=== PATIENT | female | born 1985 | race Caucasian/White ===

== ENCOUNTER → 2016-09-02 | Outpatient (REF) | payer OTHER ==
[~2016-09-02] MED LIST: COUM1TAB17 PO; LOVE0.6I2 SC; XARE15TA PO
[2016-09-02 11:39] LABS: INR 2.54
== END ==
LOC: M SFHCCAPE 08:36
PROVIDERS: ATTEND Family Medicine
DX: Z51.81 Encounter for therapeutic drug level monitoring (principal); Z79.01 Long term (current) use of anticoagulants; Z86.718 Personal history of other venous thrombosis and embolism

== ENCOUNTER → 2016-09-23 | Outpatient (REF) | payer OTHER | LOC: M SFHCCLAY 07:45 | PROVIDERS: ATTEND Family Medicine | DX: Z51.81 Encounter for therapeutic drug level monitoring (principal); Z79.01 Long term (current) use of anticoagulants; Z86.718 Personal history of other venous thrombosis and embolism ==

== ENCOUNTER → 2016-10-14 | Outpatient (REF) | payer OTHER ==
[2016-10-14 11:39] LABS: INR 1.8
== END ==
LOC: M SFHCCLAY 07:34
PROVIDERS: ATTEND Family Medicine
DX: Z51.81 Encounter for therapeutic drug level monitoring (principal); Z79.01 Long term (current) use of anticoagulants; Z86.718 Personal history of other venous thrombosis and embolism

== ENCOUNTER → 2016-10-28 | Outpatient (REF) | payer OTHER ==
[2016-10-28 11:57] LABS: INR 2.39
== END ==
LOC: M SFHCCLAY 07:36
PROVIDERS: ATTEND Family Medicine
DX: Z79.01 Long term (current) use of anticoagulants (principal)

== ENCOUNTER → 2016-11-25 | Outpatient (REF) | payer OTHER ==
[2016-11-25 12:21] LABS: ALBUMIN 3.7 GM/DL (3.2-5.2); ALBUMIN/GLOBULIN RATIO 1.19 (1.00-1.93); ALKALINE PHOSPHATASE 76 U/L (45-117); ALT/SGPT 46 U/L (12-78); ANION GAP 7 MEQ/L (8-16); AST/SGOT 27 U/L (15-37); BILIRUBIN,TOTAL 0.6 MG/DL (0.2-1.0); BLOOD UREA NITROGEN 20 MG/DL (7-18); CARBON DIOXIDE LEVEL 28 MEQ/L (21-32); CHLORIDE LEVEL 107 MEQ/L (98-107); CHOLESTEROL LEVEL 161 MG/DL (<200); CREATININE FOR GFR 0.77 MG/DL (0.55-1.02); GLOMERULAR FILTRATION RATE > 60.0 (>60); GLUCOSE, FASTING 79 MG/DL (70-105); POTASSIUM SERUM 4.6 MEQ/L (3.5-5.1); SODIUM LEVEL 142 MEQ/L (136-145); TOTAL PROTEIN 6.8 GM/DL (6.4-8.2); TRIGLYCERIDES LEVEL 37 MG/DL (<150)
[2016-11-25 12:39] LABS: INR 2.47
== END ==
LOC: M SFHCCLAY 07:20
PROVIDERS: ATTEND Family Medicine
DX: Z51.81 Encounter for therapeutic drug level monitoring (principal); Z79.01 Long term (current) use of anticoagulants; Z86.718 Personal history of other venous thrombosis and embolism; Z83.49 Family history of other endocrine, nutritional and metabolic diseases

== ENCOUNTER → 2016-12-23 | Outpatient (REF) | payer OTHER ==
[2016-12-23 12:04] LABS: INR 2.07
== END ==
LOC: M SFHCCLAY 07:32
PROVIDERS: ATTEND Family Medicine
DX: Z86.718 Personal history of other venous thrombosis and embolism (principal)

== ENCOUNTER → 2017-01-20 | Outpatient (REF) | payer OTHER | LOC: M SFHCCLAY 07:26 | PROVIDERS: ATTEND Family Medicine | DX: Z51.81 Encounter for therapeutic drug level monitoring (principal); Z79.01 Long term (current) use of anticoagulants; Z53.8 Procedure and treatment not carried out for other reasons ==

== ENCOUNTER → 2017-01-21 | Outpatient (REF) | payer OTHER ==
[2017-01-21 12:17] LABS: INR 2.1
== END ==
LOC: M SFHCCLAY 07:30
PROVIDERS: ATTEND Family Medicine
DX: Z86.718 Personal history of other venous thrombosis and embolism (principal); Z79.01 Long term (current) use of anticoagulants

== ENCOUNTER → 2017-02-19 | Outpatient (REF) | payer OTHER ==
[2017-02-19 11:36] LABS: INR 2.42
== END ==
LOC: M SFHCCLAY 07:42
PROVIDERS: ATTEND Family Medicine
DX: Z51.81 Encounter for therapeutic drug level monitoring (principal); Z79.01 Long term (current) use of anticoagulants; Z86.718 Personal history of other venous thrombosis and embolism

== ENCOUNTER → 2017-03-18 | Outpatient (REF) | payer OTHER ==
[2017-03-18 11:54] LABS: INR 3.45
== END ==
LOC: M SFHCCLAY 07:23
PROVIDERS: ATTEND Family Medicine
DX: Z51.81 Encounter for therapeutic drug level monitoring (principal); Z79.01 Long term (current) use of anticoagulants; Z86.718 Personal history of other venous thrombosis and embolism

== ENCOUNTER → 2017-04-01 | Outpatient (REF) | payer OTHER ==
[2017-04-01 11:48] LABS: INR 1.97
== END ==
LOC: M SFHCCLAY 08:30
PROVIDERS: ATTEND Family Medicine
DX: Z51.81 Encounter for therapeutic drug level monitoring (principal); Z79.01 Long term (current) use of anticoagulants; Z86.718 Personal history of other venous thrombosis and embolism

== ENCOUNTER → 2017-04-15 | Outpatient (REF) | payer OTHER ==
[2017-04-15 11:38] LABS: INR 1.9
== END ==
LOC: M SFHCCLAY 08:03
PROVIDERS: ATTEND Family Medicine
DX: Z51.81 Encounter for therapeutic drug level monitoring (principal); Z79.01 Long term (current) use of anticoagulants

== ENCOUNTER → 2017-04-29 | Outpatient (REF) | payer OTHER ==
[2017-04-29 12:25] LABS: INR 2.59
== END ==
LOC: M SFHCCLAY 08:27
PROVIDERS: ATTEND Family Medicine
DX: Z79.01 Long term (current) use of anticoagulants (principal)

== ENCOUNTER → 2017-05-27 | Outpatient (REF) | payer OTHER ==
[2017-05-27 12:00] LABS: INR 2.21
== END ==
LOC: M SFHCCLAY 07:30
PROVIDERS: ATTEND Family Medicine
DX: Z51.81 Encounter for therapeutic drug level monitoring (principal); Z79.01 Long term (current) use of anticoagulants; Z86.718 Personal history of other venous thrombosis and embolism

== ENCOUNTER → 2017-07-08 | Outpatient (REF) | payer OTHER ==
[2017-07-08 12:01] LABS: INR 2.93
== END ==
LOC: M SFHCCLAY 07:27
PROVIDERS: ATTEND Family Medicine
DX: Z79.01 Long term (current) use of anticoagulants (principal)

== ENCOUNTER → 2017-07-21 | Outpatient (REF) | payer OTHER ==
[2017-07-21 12:06] LABS: INR 2.26
== END ==
LOC: M SFHCCLAY 07:27
PROVIDERS: ATTEND Family Medicine
DX: Z86.718 Personal history of other venous thrombosis and embolism (principal)

== ENCOUNTER → 2017-08-19 | Outpatient (REF) | payer OTHER ==
[2017-08-19 11:45] LABS: INR 1.9
== END ==
LOC: M SFHCCLAY 07:29
PROVIDERS: ATTEND Family Medicine
DX: Z86.718 Personal history of other venous thrombosis and embolism (principal)

== ENCOUNTER → 2017-09-02 | Outpatient (REF) | payer OTHER ==
[2017-09-02 12:59] LABS: INR 1.56; PROTHROMBIN TIME 19.1 SECONDS (12.4-14.5)
== END ==
LOC: M SFHCCLAY 07:28
DX: Z51.81 Encounter for therapeutic drug level monitoring (principal); Z79.01 Long term (current) use of anticoagulants
CPT/HCPCS: 85610

== ENCOUNTER → 2017-09-16 | Outpatient (REF) | payer OTHER ==
[2017-09-16 12:27] LABS: INR 1.45
== END ==
LOC: M SFHCCLAY 07:31
DX: Z86.718 Personal history of other venous thrombosis and embolism (principal)
CPT/HCPCS: 85610

== ENCOUNTER → 2017-09-30 | Outpatient (REF) | payer OTHER ==
[2017-09-30 12:48] LABS: INR 2.23; PROTHROMBIN TIME 25.5 SECONDS (12.4-14.5)
== END ==
LOC: M SFHCCLAY 08:51
DX: Z51.81 Encounter for therapeutic drug level monitoring (principal); Z79.01 Long term (current) use of anticoagulants
CPT/HCPCS: 85610

== ENCOUNTER → 2017-10-14 | Outpatient (REF) | payer OTHER ==
[2017-10-14 12:04] LABS: INR 3.05; PROTHROMBIN TIME 32.9 SECONDS (12.4-14.5)
== END ==
LOC: M SFHCCLAY 07:33
DX: Z51.81 Encounter for therapeutic drug level monitoring (principal); Z79.01 Long term (current) use of anticoagulants
CPT/HCPCS: 85610

== ENCOUNTER → 2017-10-28 | Outpatient (REF) | payer OTHER ==
[2017-10-28 12:03] LABS: INR 1.74; PROTHROMBIN TIME 20.9 SECONDS (12.4-14.5)
== END ==
LOC: M SFHCCLAY 07:38
DX: Z79.01 Long term (current) use of anticoagulants (principal)
CPT/HCPCS: 85610

== ENCOUNTER → 2017-11-18 | Outpatient (REF) | payer OTHER ==
[2017-11-18 11:42] LABS: HEMATOCRIT 41.5 % (36.0-47.0); MEAN CORPUSCULAR HEMOGLOBIN 30.4 pg (27.0-33.0); MEAN CORPUSCULAR HGB CONC 33.7 g/dl (32.0-36.5); MEAN CORPUSCULAR VOLUME 90.2 fl (80.0-96.0); PLATELET COUNT, AUTOMATED 167 10^3/uL (150-450); RED CELL DISTRIBUTION WIDTH 12.3 % (11.5-14.5); WHITE BLOOD COUNT 5.7 10^3/uL (4.0-10.0)
[2017-11-18 11:53] LABS: INR 1.82; PROTHROMBIN TIME 21.6 SECONDS (12.4-14.5)
[2017-11-18 12:07] LABS: IRON (FE) 75 UG/DL (50-170); PERCENT SATURATION 28.1 % (13.2-45.0); TOTAL IRON BINDING CAPACITY 267 UG/DL (250-450)
== END ==
LOC: M SFHCCLAY 07:22
DX: N92.1 Excessive and frequent menstruation with irregular cycle (principal); Z79.01 Long term (current) use of anticoagulants

== ENCOUNTER → 2017-12-03 | Outpatient (REF) | payer OTHER ==
[2017-12-03 11:58] LABS: INR 2.04; PROTHROMBIN TIME 23.7 SECONDS (12.4-14.5)
== END ==
LOC: M SFHCCLAY 11:20
DX: Z51.81 Encounter for therapeutic drug level monitoring (principal); Z79.01 Long term (current) use of anticoagulants

== ENCOUNTER → 2017-12-16 | Outpatient (REF) | payer OTHER ==
[2017-12-16 11:50] LABS: INR 2.23; PROTHROMBIN TIME 25.5 SECONDS (12.4-14.5)
== END ==
LOC: M SFHCCLAY 08:06
DX: Z79.01 Long term (current) use of anticoagulants (principal)

== ENCOUNTER → 2018-01-13 | Outpatient (REF) | payer OTHER ==
[2018-01-13 11:41] LABS: INR 3.53; PROTHROMBIN TIME 37.1 SECONDS (12.4-14.5)
== END ==
LOC: M SFHCCLAY 07:30
DX: Z79.01 Long term (current) use of anticoagulants (principal)
CPT/HCPCS: 85610

== ENCOUNTER → 2018-11-08 | Outpatient (REF) | payer OTHER ==
[2018-11-08 11:35] LABS: HEMATOCRIT 43.5 % (36.0-47.0); HEMOGLOBIN 14.7 g/dl (12.0-15.5); MEAN CORPUSCULAR HEMOGLOBIN 30.9 pg (27.0-33.0); MEAN CORPUSCULAR HGB CONC 33.8 g/dl (32.0-36.5); MEAN CORPUSCULAR VOLUME 91.4 fl (80.0-96.0); PLATELET COUNT, AUTOMATED 169 10^3/uL (150-450); RED BLOOD COUNT 4.76 10^6/uL (4.00-5.40); WHITE BLOOD COUNT 5.9 10^3/uL (4.0-10.0)
[2018-11-08 11:41] LABS: ALBUMIN 3.9 GM/DL (3.2-5.2); ALT/SGPT 51 U/L (12-78); BILIRUBIN,TOTAL 0.5 MG/DL (0.2-1.0); BLOOD UREA NITROGEN 18 MG/DL (7-18); CARBON DIOXIDE LEVEL 26 MEQ/L (21-32); CHLORIDE LEVEL 107 MEQ/L (98-107); CHOLESTEROL LEVEL 171 MG/DL (<200); CHOLESTEROL RISK RATIO 3.226 (<5); CREATININE FOR GFR 0.79 MG/DL (0.55-1.30); GLOMERULAR FILTRATION RATE > 60.0 (>60); GLUCOSE, FASTING 85 MG/DL (70-100); HDL CHOLESTEROL 53 MG/DL (>40); LDL CHOLESTEROL 105 MG/DL (<100); NON-HDL-C 118 MG/DL; POTASSIUM SERUM 4.4 MEQ/L (3.5-5.1); SODIUM LEVEL 140 MEQ/L (136-145); TRIGLYCERIDES LEVEL 65 MG/DL (<150)
== END ==
LOC: M SFHCCLAY 07:43
PROVIDERS: ATTEND Family Medicine
DX: D68.51 Activated protein C resistance (principal); Z86.718 Personal history of other venous thrombosis and embolism; Z83.3 Family history of diabetes mellitus; Z79.01 Long term (current) use of anticoagulants; N92.1 Excessive and frequent menstruation with irregular cycle

== ENCOUNTER → 2019-06-27 | Outpatient (REF) | payer OTHER ==
[2019-06-27 12:56] LABS: BASO % 0.3 % (0.0-1.0); EOS # 0.2 10^3/uL (0.0-0.5); EOS % 2.9 % (0.0-3.0); HEMATOCRIT 42.5 % (36.0-47.0); HEMOGLOBIN 14.7 g/dl (12.0-15.5); LYMPH # 2.1 10^3/uL (1.5-5.0); MEAN CORPUSCULAR HEMOGLOBIN 32.1 pg (27.0-33.0); MEAN CORPUSCULAR HGB CONC 34.6 g/dl (32.0-36.5); MEAN CORPUSCULAR VOLUME 92.8 fl (80.0-96.0); MONO # 0.5 10^3/uL (0.0-0.8); MONO % 7.8 % (0.0-5.0); NEUTROPHILS # 3.9 10^3/uL (1.5-8.5); NEUTROPHILS % 57.7 % (36.0-66.0); PLATELET COUNT, AUTOMATED 179 10^3/uL (150-450); RED BLOOD COUNT 4.58 10^6/uL (4.00-5.40); WHITE BLOOD COUNT 6.8 10^3/uL (4.0-10.0)
== END ==
LOC: M LABDRAW1 11:44
PROVIDERS: ATTEND Nurse Practitioner
DX: Z01.419 Encounter for gynecological examination (general) (routine) without abnormal findings (principal); N93.9 Abnormal uterine and vaginal bleeding, unspecified

== ENCOUNTER 2019-11-01 11:07 | Emergency (ER) | payer OTHER ==
[~2019-11-01] VITALS: Ht 167.6 cm; Wt 86.3 kg
[2019-11-01] MEDS ORDERED: WARF-22 PO ×2 (11:17)
--- NOTE | 2019-11-01 12:10 | REP ---
LEFT LOWER EXTREMITY DUPLEX VENOUS ULTRASOUND: Real-time compression and duplex Doppler interrogation of left lower extremity deep venous system is performed. Thin linear old thrombus is seen in the left common femoral and superficial femoral veins, but these vessels are fully compressible with transducer pressure and demonstrate no acute deep vein thrombosis. However, there is nonocclusive thrombus seen in the left popliteal vein, with that vessel incompletely compressible. This could be acute or chronic. IMPRESSION: Nonocclusive thrombus in the left popliteal vein could be acute or chronic. No other evidence of deep vein thrombosis left lower extremity. Electronically Signed by Jovan Carver MD 11/01/2019 04:09 P
[2019-11-01] MEDS ORDERED: LOVE1INJ SC (14:17)
[2019-11-01 14:29] VITALS: BP 136/85
== END 2019-11-01 14:34 | disposition home or self-care (01) ==
LOC: M ED 11:07
DX: I82.432 Acute embolism and thrombosis of left popliteal vein (principal); Z79.01 Long term (current) use of anticoagulants

== ENCOUNTER 2019-11-01 15:31 | Emergency (ER) | payer OTHER ==
[~2019-11-01] VITALS: Ht 167.6 cm; Wt 83.2 kg
[~2019-11-01 15:31] MED LIST changes: +LOVE1INJ SC; +WARF-22 PO
[2019-11-01] MEDS ORDERED: ENOXAPARIN 120 MG/0.8 ML SYR (J1650) SC ONE (16:00)
[2019-11-01] MEDS ORDERED: ENOXAPARIN 100MG/1ML SYRINGE (J1650) SC ONE ×2 (16:00)
[2019-11-01 16:17] LABS: BASO % 0.4 % (0.0-1.0); EOS # 0.1 10^3/uL (0.0-0.5); EOS % 1.7 % (0.0-3.0); HEMATOCRIT 45.2 % (36.0-47.0); HEMOGLOBIN 14.7 g/dl (12.0-15.5); LYMPH # 1.7 10^3/uL (1.5-5.0); LYMPH % 22.4 % (24.0-44.0); MEAN CORPUSCULAR HEMOGLOBIN 29.2 pg (27.0-33.0); MEAN CORPUSCULAR HGB CONC 32.5 g/dl (32.0-36.5); MEAN CORPUSCULAR VOLUME 89.7 fl (80.0-96.0); MONO # 0.5 10^3/uL (0.0-0.8); MONO % 6.4 % (0.0-5.0); NEUTROPHILS # 5.2 10^3/uL (1.5-8.5); NEUTROPHILS % 68.8 % (36.0-66.0); PLATELET COUNT, AUTOMATED 189 10^3/uL (150-450); RED BLOOD COUNT 5.04 10^6/uL (4.00-5.40); WHITE BLOOD COUNT 7.6 10^3/uL (4.0-10.0)
[2019-11-01 16:48] LABS: CREATININE FOR GFR 0.82 MG/DL (0.55-1.30); GLOMERULAR FILTRATION RATE > 60.0 (>60)
[2019-11-01 17:46] VITALS: BP 124/78
== END 2019-11-01 17:51 | disposition home or self-care (01) ==
LOC: M ED 15:31
DX: I82.432 Acute embolism and thrombosis of left popliteal vein (principal); Z79.01 Long term (current) use of anticoagulants
CPT/HCPCS: 36415; 82550; 82565; 85025; 99283; J1650

== ENCOUNTER → 2020-02-01 | Outpatient (REF) | payer OTHER | LOC: M SFHCCLAY 07:09 | PROVIDERS: ATTEND Family Medicine | DX: Z86.718 Personal history of other venous thrombosis and embolism (principal) ==

== ENCOUNTER → 2020-04-23 | Outpatient (REF) | payer OTHER | LOC: M LAB REF 08:30 | PROVIDERS: ATTEND Physician Assistant | DX: D48.5 Neoplasm of uncertain behavior of skin (principal) ==

== ENCOUNTER → 2020-09-10 | Outpatient (REF) | payer OTHER | LOC: M LAB REF 17:54 | PROVIDERS: ATTEND Dermatology | DX: L90.5 Scar conditions and fibrosis of skin (principal); Z85.828 Personal history of other malignant neoplasm of skin ==

== ENCOUNTER → 2020-11-27 | Outpatient (CLI) | payer OTHER ==
--- NOTE | 2020-11-28 06:19 | REP ---
INDICATION: D25.9 FIBROID COMPARISON: 06/18/2017 TECHNIQUE: Transabdominal pelvic ultrasound followed by transvaginal examination for better evaluation of the endometrium and adnexa with color Doppler evaluation of the ovaries. FINDINGS: Bladder is unremarkable and measures 9.8 x 9.0 x 5.7 cm. Heterogeneous myomatous uterus measures 14.3 x 7.4 x 8.4 cm. The endometrial complex is poorly evaluated due to surrounding myomatous changes although no obvious endocervical fluid is identified. A heterogeneous area within the body of the uterus extending towards the fundus with increased vascularity measures 7.2 x 5.9 x 6.9 cm suggesting large poorly defined fibroid. Bilateral ovaries are normal in appearance and vascularity without evidence for torsion. Right ovary measures 2.7 x 2.2 x 2.3 cm with 1.9 cm dominant follicle/cyst; R I = 0.60. Left ovary measures 2.0 x 2.6 x 1.8 cm; R I = 0.60. No pelvic fluid or adnexal mass lesion. IMPRESSION: Enlarged uterus with enlarged heterogeneous ill-defined fibroid increased from prior examination. <Electronically signed by Soctt Pastor > 11/28/20 0616
== END ==
LOC: M WHC 14:00
PROVIDERS: ATTEND Specialist
DX: D25.9 Leiomyoma of uterus, unspecified (principal)

== ENCOUNTER → 2021-04-16 | Outpatient (REF) | payer OTHER ==
[2021-04-17 11:40] LABS: HEMATOCRIT 40.5 % (36.0-47.0); MEAN CORPUSCULAR HEMOGLOBIN 27.7 pg (27.0-33.0); MEAN CORPUSCULAR HGB CONC 32.1 g/dl (32.0-36.5); MEAN CORPUSCULAR VOLUME 86.2 fl (80.0-96.0); PLATELET COUNT, AUTOMATED 289 10^3/uL (150-450); WHITE BLOOD COUNT 11.3 10^3/uL (4.0-10.0)
[2021-04-17 12:06] LABS: BLOOD UREA NITROGEN 18 MG/DL (7-18); CALCIUM LEVEL 9.6 MG/DL (8.5-10.1); CARBON DIOXIDE LEVEL 28 MEQ/L (21-32); CHLORIDE LEVEL 105 MEQ/L (98-107); CREATININE FOR GFR 0.79 MG/DL (0.55-1.30); GLOMERULAR FILTRATION RATE > 60.0 (>60); GLUCOSE, FASTING 77 MG/DL (70-100); IRON (FE) 29 UG/DL (50-170); POTASSIUM SERUM 5.8 MEQ/L (3.5-5.1); SODIUM LEVEL 136 MEQ/L (136-145)
== END ==
LOC: M SFHCCLAY 14:41
PROVIDERS: ATTEND Family Medicine
DX: Z01.818 Encounter for other preprocedural examination (principal); D68.51 Activated protein C resistance; N92.1 Excessive and frequent menstruation with irregular cycle; Z86.718 Personal history of other venous thrombosis and embolism; Z79.01 Long term (current) use of anticoagulants

== ENCOUNTER → 2021-04-18 | Outpatient (CLI) | payer OTHER | LOC: M LABSMTC 10:34 | PROVIDERS: ATTEND Anesthesiology | DX: Z01.812 Encounter for preprocedural laboratory examination (principal); Z11.52 Encounter for screening for COVID-19 ==

== ENCOUNTER → 2021-04-18 | Outpatient (CLI) | payer OTHER | LOC: M LAB 16:14 | PROVIDERS: ATTEND Family Medicine | DX: E87.5 Hyperkalemia (principal) ==

== ENCOUNTER 2021-04-23 13:04 | Day surgery (SDC) | payer OTHER ==
[~2021-04-23] VITALS: Ht 167.6 cm; Wt 90.5 kg
[~2021-04-23 13:04] MED LIST changes: +ACETAMINOPHEN 1000MG 100ML IV BTL (OFIRMEV) (J0131 PER 10MG) As Ordered ONE; +KETOROLAC 60MG 2ML VIAL As Ordered ONE; +LIDOCAINE 1% MDV 20ML VIAL SQ PRN; +LIDOCAINE 2% 100MG/5ML SDV (FOR ANES.) As Ordered ONE; +LR 1,000 ML IV ONE; +MIDAZOLAM INJ 2MG/2ML VIAL (J2250 PER 1MG) As Ordered ONE; +ONDANSETRON 4MG/2ML VIAL As Ordered ONE; +ROCURONIUM BROMIDE 50 MG/5 ML VIAL As Ordered ONE; +SUGAMMADEX SODIUM 500 MG/5 ML VIAL (BRIDION) As Ordered ONE; +ceFAZolin SOD 2 GM in IV 1 EA IV ONE; +dexameTHASONE 4 MG/ML 1ML VIAL (J1100 PER 1MG) As Ordered ONE; +fentaNYL 100 MCG/2 ML INJECTION (J3010) As Ordered ONE; +propofoL 200 MG/20 ML VIAL As Ordered ONE
[2021-04-23 13:33] LABS: HEMOGLOBIN 12.9 g/dl (12.0-15.5); MEAN CORPUSCULAR HEMOGLOBIN 27.9 pg (27.0-33.0); MEAN CORPUSCULAR HGB CONC 32.3 g/dl (32.0-36.5); MEAN CORPUSCULAR VOLUME 86.4 fl (80.0-96.0); PLATELET COUNT, AUTOMATED 203 10^3/uL (150-450); RED BLOOD COUNT 4.63 10^6/uL (4.00-5.40); WHITE BLOOD COUNT 9.3 10^3/uL (4.0-10.0)
[2021-04-23 13:44] LABS: INR 0.99; PROTHROMBIN TIME 13.5 SECONDS (12.7-14.5)
[2021-04-23] MEDS ORDERED: OXYC1TAB23 PO (14:58)
[2021-04-23] MEDS ORDERED: BUPIVACAINE HCL 0.25% 30ML VIAL As Ordered ONE ×2 (15:00→15:01)
[2021-04-23] MEDS ORDERED: VASOPRESSIN INJ 20 UNITS/ML VIAL As Ordered ONE (15:01)
[2021-04-23] MEDS ORDERED: fentaNYL 100 MCG/2 ML INJECTION (J3010) As Ordered ONE (15:48)
[2021-04-23] MEDS ORDERED: GLYCOPYRROLATE INJ 0.2 MG/ML 2 ML VIAL As Ordered ONE (15:51)
[2021-04-23] MEDS ORDERED: HYDROmorphone HCL 2MG/ML 1ML VIAL As Ordered ONE (16:30)
[2021-04-23] MEDS ORDERED: ePHEDrine SULFATE 25 MG/5 ML(5MG/ML) SYRINGE As Ordered ONE (17:39)
[2021-04-23] MEDS ORDERED: ONDANSETRON 4MG/2ML VIAL IV PRN ×2 (18:35→19:30)
[2021-04-23] MEDS ORDERED: PERCOCET 5MG/325MG TAB PO PRN (18:35)
[2021-04-23] MEDS ORDERED: LR 1,000 ML IV SCH ×2 (18:35→18:40)
[2021-04-23] MEDS ORDERED: METOCLOPRAMIDE INJ 10MG/2ML VIAL (J2765 PER 1) IV PRN (18:35)
[2021-04-23] MEDS ORDERED: fentaNYL 100 MCG/2 ML INJECTION (J3010) IV PRN (18:35)
[2021-04-23] MEDS ORDERED: KETOROLAC 30 MG/ML 1ML VIAL IV PRN (19:30)
[2021-04-23 20:15] VITALS: BP 114/63
[2021-04-23] MEDS: DOCUSATE SODIUM 100MG CAPSULE PO SCH (20:42)
[2021-04-23 20:45] VITALS: BP 116/64
[2021-04-23 21:45] VITALS: BP 112/57
[2021-04-23 22:45] VITALS: BP 130/65
[2021-04-23] MEDS: PERCOCET 5MG/325MG TAB PO PRN (23:22)
[2021-04-23 23:45] VITALS: BP 125/66
[2021-04-24 00:45] VITALS: BP 125/64
[2021-04-24 02:00] VITALS: BP 119/58
[2021-04-24 06:00] VITALS: BP 110/55
[2021-04-24 06:33] LABS: MEAN CORPUSCULAR HEMOGLOBIN 28.3 pg (27.0-33.0); MEAN CORPUSCULAR HGB CONC 33.2 g/dl (32.0-36.5); MEAN CORPUSCULAR VOLUME 85.2 fl (80.0-96.0); PLATELET COUNT, AUTOMATED 180 10^3/uL (150-450); RED BLOOD COUNT 3.64 10^6/uL (4.00-5.40); WHITE BLOOD COUNT 17.4 10^3/uL (4.0-10.0)
[2021-04-24 06:39] LABS: HEMOGLOBIN 10.3 g/dl (12.0-15.5)
[2021-04-24 10:00] VITALS: BP 122/66
[2021-04-24] MEDS: PERCOCET 5MG/325MG TAB PO PRN (10:15)
[2021-04-24] MEDS: DOCUSATE SODIUM 100MG CAPSULE PO SCH (10:15)
== END 2021-04-24 11:35 | disposition home or self-care (01) ==
LOC: M SDC 13:04 → M MSPAV 20:06 → M SDC 04-24 11:35
PROVIDERS: ATTEND Specialist
DX: D25.9 Leiomyoma of uterus, unspecified (principal); N92.0 Excessive and frequent menstruation with regular cycle; D68.51 Activated protein C resistance; Z86.718 Personal history of other venous thrombosis and embolism; Z79.01 Long term (current) use of anticoagulants
CPT/HCPCS: 36415; 58545; 81025; 85027; 85610; 86850; 86900; 86901; 88305; J0131; J0690; J1100; J1170; J1885; J2250; J2405; J2765; J3010

== ENCOUNTER → 2021-10-22 | Outpatient (REF) | payer OTHER ==
[~2021-10-22] MED LIST changes: -ACETAMINOPHEN 1000MG 100ML IV BTL (OFIRMEV) (J0131 PER 10MG) As Ordered ONE; -KETOROLAC 60MG 2ML VIAL As Ordered ONE; -LIDOCAINE 1% MDV 20ML VIAL SQ PRN; -LIDOCAINE 2% 100MG/5ML SDV (FOR ANES.) As Ordered ONE; -LR 1,000 ML IV ONE; -MIDAZOLAM INJ 2MG/2ML VIAL (J2250 PER 1MG) As Ordered ONE; -ONDANSETRON 4MG/2ML VIAL As Ordered ONE; +OXYC1TAB23 PO; -ROCURONIUM BROMIDE 50 MG/5 ML VIAL As Ordered ONE; -SUGAMMADEX SODIUM 500 MG/5 ML VIAL (BRIDION) As Ordered ONE; -ceFAZolin SOD 2 GM in IV 1 EA IV ONE; -dexameTHASONE 4 MG/ML 1ML VIAL (J1100 PER 1MG) As Ordered ONE; -fentaNYL 100 MCG/2 ML INJECTION (J3010) As Ordered ONE; -propofoL 200 MG/20 ML VIAL As Ordered ONE
[2021-10-22 11:36] LABS: HEMATOCRIT 42.7 % (36.0-47.0); HEMOGLOBIN 14.1 g/dl (12.0-15.5); MEAN CORPUSCULAR HEMOGLOBIN 29.1 pg (27.0-33.0); MEAN CORPUSCULAR VOLUME 88.2 fl (80.0-96.0); PLATELET COUNT, AUTOMATED 190 10^3/uL (150-450); RED BLOOD COUNT 4.84 10^6/uL (4.00-5.40); WHITE BLOOD COUNT 6.6 10^3/uL (4.0-10.0)
[2021-10-22 12:07] LABS: HEMOGLOBIN A1c 5.1 %
[2021-10-22 12:08] LABS: ALBUMIN 3.8 GM/DL (3.2-5.2); ALT/SGPT 29 U/L (12-78); BILIRUBIN,TOTAL 0.3 MG/DL (0.2-1.0); BLOOD UREA NITROGEN 16 MG/DL (7-18); CALCIUM LEVEL 9.2 MG/DL (8.5-10.1); CARBON DIOXIDE LEVEL 26 MEQ/L (21-32); CHLORIDE LEVEL 107 MEQ/L (98-107); CHOLESTEROL LEVEL 170 MG/DL (<200); CHOLESTEROL RISK RATIO 2.931 (<5); CREATININE FOR GFR 0.73 MG/DL (0.55-1.30); GLOMERULAR FILTRATION RATE > 60.0 (>60); GLUCOSE, FASTING 84 MG/DL (70-100); HDL CHOLESTEROL 58 MG/DL (>40); IRON (FE) 70 UG/DL (50-170); LDL CHOLESTEROL 101 MG/DL (<100); NON-HDL-C 112 MG/DL; POTASSIUM SERUM 4.7 MEQ/L (3.5-5.1); SODIUM LEVEL 137 MEQ/L (136-145); TRIGLYCERIDES LEVEL 57 MG/DL (<150)
== END ==
LOC: M SFHCCLAY 08:54
PROVIDERS: ATTEND Family Medicine
DX: D68.51 Activated protein C resistance (principal); Z68.31 Body mass index [BMI] 31.0-31.9, adult; Z79.01 Long term (current) use of anticoagulants

== ENCOUNTER → 2023-12-20 | Outpatient (CLI) | payer BC ==
[2023-12-20 12:13] LABS: BASO % 0.6 % (0.0-1.0); EOS # 0.2 10^3/uL (0.0-0.5); EOS % 2.9 % (0.0-3.0); HEMATOCRIT 41.3 % (36.0-47.0); LYMPH % 27.3 % (24.0-44.0); MEAN CORPUSCULAR HEMOGLOBIN 31.2 pg (27.0-33.0); MEAN CORPUSCULAR HGB CONC 33.9 g/dl (32.0-36.5); MONO # 0.6 10^3/uL (0.0-0.8); MONO % 8.2 % (2.0-8.0); NEUTROPHILS # 4.4 10^3/uL (1.5-8.5); NEUTROPHILS % 60.7 % (36.0-66.0); PLATELET COUNT, AUTOMATED 209 10^3/uL (150-450); RED BLOOD COUNT 4.49 10^6/uL (4.00-5.40); WHITE BLOOD COUNT 7.2 10^3/uL (4.0-10.0)
[2023-12-20 13:08] LABS: ALBUMIN 3.6 G/DL (3.2-5.2); ALKALINE PHOSPHATASE 73 U/L (46-116); ALT/SGPT 28 U/L (7.0-40); AST/SGOT 20 U/L (<34); BILIRUBIN,TOTAL 0.5 MG/DL (0.3-1.2); BLOOD UREA NITROGEN 15 MG/DL (9-23); CALCIUM LEVEL 8.9 MG/DL (8.5-10.1); CARBON DIOXIDE LEVEL 28 MMOL/L (20-31); CHLORIDE LEVEL 105 MMOL/L (98-107); CREATININE FOR GFR 0.77 MG/DL (0.55-1.30); FREE T4 0.97 NG/DL (0.89-1.76); GLOMERULAR FILTRATION RATE > 60.0 (>60); GLUCOSE, FASTING 95 MG/DL (60-100); POTASSIUM SERUM 4.3 MMOL/L (3.5-5.1); SODIUM LEVEL 138 MMOL/L (136-145); THYROID STIMULATING HORMONE 2.431 uIU/ML (0.55-4.78); TOTAL PROTEIN 6.6 G/DL (5.7-8.2)
== END ==
LOC: M WUC 08:14
PROVIDERS: ATTEND Nurse Practitioner Adult Health
DX: R63.5 Abnormal weight gain (principal)

== ENCOUNTER → 2025-01-09 | Outpatient (CLI) | payer BC ==
[2025-01-09 18:31] LABS: HEMATOCRIT 38.3 % (36.0-47.0); HEMOGLOBIN 13.1 g/dl (12.0-15.5); MEAN CORPUSCULAR HEMOGLOBIN 30.8 pg (27.0-33.0); MEAN CORPUSCULAR HGB CONC 34.2 g/dl (32.0-36.5); MEAN CORPUSCULAR VOLUME 89.9 fl (80.0-96.0); PLATELET COUNT, AUTOMATED 227 10^3/uL (150-450); RED BLOOD COUNT 4.26 10^6/uL (4.00-5.40); TOTAL 25(OH) VITAMIN D 77.9 NG/ML (20.0-100.0)
[2025-01-09 18:32] LABS: PROLACTIN 11.03 NG/ML
[2025-01-09 18:33] LABS: TESTOSTERONE 23 NG/DL (14-76)
[2025-01-09 18:38] LABS: THYROID PEROXIDASE ANTIBODY < 28.0 U/ML (<60.0)
[2025-01-09 18:44] LABS: HEPATITIS B SURFACE ANTIGEN NEGATIVE (NEGATIVE)
[2025-01-09 18:46] LABS: HEMOGLOBIN A1c 4.7 % (4.0-6.0)
[2025-01-09 18:57] LABS: HIV 1&2 SCREEN NEGATIVE (NEGATIVE)
[2025-01-09 19:05] LABS: HEPATITIS C VIRUS ABY INDEX 0.06 INDEX (<0.8)
[2025-01-11 13:07] LABS: HERPES ZOSTER, VARICELLA IgG 8.23 S/CO (>=1.00)
[2025-01-15 17:58] LABS: ANTI MULLERIAN HORMONE 2.21 ng/mL (0.18-5.68)
== END ==
LOC: M PLALAB 14:30
PROVIDERS: ATTEND Obstetrics & Gynecology Reproductive Endocrinology
DX: Z31.41 Encounter for fertility testing (principal)

== ENCOUNTER → 2025-01-11 | Outpatient (CLI) | payer BC | LOC: M LAB 10:08 | PROVIDERS: ATTEND Obstetrics & Gynecology Reproductive Endocrinology | DX: Z31.41 Encounter for fertility testing (principal) ==